=== PATIENT | male | born 1955 ===

== ENCOUNTER 2022-04-05 17:04 | Emergency (ER) | payer OTHER ==
[~2022-04-05] VITALS: Ht 167.6 cm; Wt 72.6 kg
[2022-04-05] MEDS ORDERED: LOSARTAN POTAS100 MG PO (17:55)
[2022-04-05] MEDS ORDERED: METFORMIN HCL500 M4 PO (17:55)
[2022-04-05] MEDS ORDERED: AMLODIPINE BESY10 MG PO (17:55)
[2022-04-05] MEDS ORDERED: CRESTOR10 MG PO (17:56)
== END 2022-04-06 02:01 | disposition home or self-care (01) ==
LOC: ER 17:04
DX: F10.239 Alcohol dependence with withdrawal, unspecified (principal); Z88.6 Allergy status to analgesic agent; Z91.013 Allergy to seafood; E11.9 Type 2 diabetes mellitus without complications; Z79.84 Long term (current) use of oral hypoglycemic drugs; I10 Essential (primary) hypertension; Z20.822 Contact with and (suspected) exposure to COVID-19

== ENCOUNTER 2022-09-01 07:45 | Outpatient (CLI) | payer OTHER ==
[~2022-09-01 07:45] MED LIST: AMLODIPINE BESY10 MG PO; CRESTOR10 MG PO; LOSARTAN POTAS100 MG PO; METFORMIN HCL500 M4 PO
== END 2022-09-01 07:48 | disposition home or self-care (01) ==
LOC: LAB 07:45
PROVIDERS: ATTEND Internal Medicine Hematology & Oncology
DX: D50.8 Other iron deficiency anemias (principal); R79.9 Abnormal finding of blood chemistry, unspecified; I10 Essential (primary) hypertension; R74.02 Elevation of levels of lactic acid dehydrogenase [LDH]; K76.89 Other specified diseases of liver; D51.8 Other vitamin B12 deficiency anemias; E03.8 Other specified hypothyroidism; R97.0 Elevated carcinoembryonic antigen [CEA]; R97.8 Other abnormal tumor markers; D72.821 Monocytosis (symptomatic); E11.9 Type 2 diabetes mellitus without complications; D51.3 Other dietary vitamin B12 deficiency anemia; E78.2 Mixed hyperlipidemia

== ENCOUNTER 2022-12-01 06:33 | Outpatient (CLI) | payer OTHER | END 2022-12-01 06:35 | disposition home or self-care (01) | LOC: LAB 06:33 | PROVIDERS: ATTEND Internal Medicine Hematology & Oncology | DX: D50.8 Other iron deficiency anemias (principal); R79.9 Abnormal finding of blood chemistry, unspecified; I10 Essential (primary) hypertension; R74.02 Elevation of levels of lactic acid dehydrogenase [LDH]; K76.89 Other specified diseases of liver; D51.8 Other vitamin B12 deficiency anemias; R19.5 Other fecal abnormalities; D72.821 Monocytosis (symptomatic); E11.9 Type 2 diabetes mellitus without complications; D51.3 Other dietary vitamin B12 deficiency anemia; E78.2 Mixed hyperlipidemia; R97.0 Elevated carcinoembryonic antigen [CEA]; E03.9 Hypothyroidism, unspecified ==

== ENCOUNTER → 2023-03-28 07:33 | Outpatient (CLI) | payer OTHER | END | disposition home or self-care (01) | LOC: LAB 07:33 | PROVIDERS: ATTEND Internal Medicine Hematology & Oncology | DX: D50.8 Other iron deficiency anemias (principal); R79.9 Abnormal finding of blood chemistry, unspecified; R74.02 Elevation of levels of lactic acid dehydrogenase [LDH]; K76.89 Other specified diseases of liver; D51.8 Other vitamin B12 deficiency anemias; E03.8 Other specified hypothyroidism; R97.0 Elevated carcinoembryonic antigen [CEA]; R97.8 Other abnormal tumor markers; D72.821 Monocytosis (symptomatic); D51.3 Other dietary vitamin B12 deficiency anemia; E78.2 Mixed hyperlipidemia; I11.9 Hypertensive heart disease without heart failure; E55.9 Vitamin D deficiency, unspecified; E11.9 Type 2 diabetes mellitus without complications ==

== ENCOUNTER 2023-10-04 00:57 | Emergency (ER) | payer OTHER ==
[~2023-10-04] VITALS: Ht 165.1 cm; Wt 74.8 kg
[2023-10-04] MEDS ORDERED: RINGERS SOLUTION,LACTATED 1,000 ML IV STA (04:28)
[2023-10-04] MEDS ORDERED: THIAMINE HCL 100 MG/ML 2 ML VIAL IM STA (04:29)
[2023-10-04] MEDS ORDERED: LORazepam 2 MG/ML VIAL IM STA (04:30)
[2023-10-04] MEDS ORDERED: FAMOTIDINE/PF 20 MG/2 ML VIAL IV PUSH STA (04:30)
[2023-10-04 05:15] LABS: ALBUMIN 4.1 gm/dL (3.4-5.0); BILIRUBIN TOTAL 0.96 mg/dL (0.3-1.2); CREATININE SERUM 0.85 mg/dL (0.70-1.30); GFR 90.18; GLOBULINA 4.5 G/DL (2.4-3.5); POTASSIUM 3.5 mEq/L (3.5-5.1); TOTAL PROTEIN 8.6 gm/dL (6.4-8.2)
[2023-10-04 05:17] LABS: HEMATOCRIT 42.4 % (39.0-48.0); HEMOGLOBIN 14.6 g/dL (13-16.00); MEAN CELL VOLUME 96.5 fL (80.0-100.00); MEAN CORPUSCULAR HEMOGLOBIN 33.3 pg (27.00-32.0); MEAN CORPUSCULAR HGB CONC 34.5 g/dl (32.0-36.0); PLATELET COUNT 182 K/uL (150-450); RED CELL DISTRIBUTION WIDTH 14.2 % (11.5-14.5)
== END 2023-10-04 07:10 | disposition home or self-care (01) ==
LOC: ER 00:57
DX: F41.1 Generalized anxiety disorder (principal); F10.10 Alcohol abuse, uncomplicated; Z88.6 Allergy status to analgesic agent; Z91.013 Allergy to seafood; E11.9 Type 2 diabetes mellitus without complications; Z79.84 Long term (current) use of oral hypoglycemic drugs; I11.9 Hypertensive heart disease without heart failure
CPT/HCPCS: 36415; 96365; 96372; 99282; J3490